=== PATIENT | female | born 1985 | race Caucasian/White ===

== ENCOUNTER 2020-11-07 09:54 | Emergency (ER) | payer BC ==
[2020-11-07] MEDS ORDERED: diphenhydrAMINE 25 MG CAP ONE (10:25)
[2020-11-07] MEDS ORDERED: predniSONE 20 MG TAB ONE (10:25)
[2020-11-07] MEDS ORDERED: Famotidine 20 MG TAB ONE (10:25)
== END 2020-11-07 10:56 | disposition home or self-care (01) ==
LOC: MADERS 09:54
DX: L50.9 Urticaria, unspecified (principal); M25.462 Effusion, left knee; Z79.899 Other long term (current) drug therapy
CPT/HCPCS: 99283; J7512; Q0163